=== PATIENT | male | born 1960 | race Caucasian/White ===

== ENCOUNTER → 2017-02-06 | Day surgery (SDC) | payer BC ==
[~2017-02-06] MED LIST: ADVIL200 M3 PO; AMLODIPINE-BEN1 EAC3 PO; FLEXERIL PO; HYDROCODON-ACE1 EAC9 PO; KETOPROFEN PO; LOTREL 10/20 MG1 CAP PO; PRINIVIL10 MG PO; SYNTHROID25 MCG PO
--- NOTE | ~2017-02-06 | OR ---
Unit #: [id number] #: [id number] Patient: DIAMANTE GOULD [id number] [address] [place], [place] [address] [id number] O MR#: [id number] NAME: DIAMANTE GOULD. ROOM: Date of Procedure: 02/06/2017 Admission Date: 02/06/2017 Surgeon: Gabino Awad M.D. : 1960 Attending Physician: Gabino Awad M.D. Primary Care Physician: Ellen Viveros M.D. OPERATIVE REPORT PRIMARY CARE PHYSICIAN Ellen Viveors M.D. PREOPERATIVE DIAGNOSIS Colorectal cancer screening in an average-risk patient. PROCEDURE PERFORMED Colonoscopy up to cecum and terminal ileum with excellent preparation and good visualization. POSTOPERATIVE DIAGNOSES The patient had mild sigmoid and descending colon diverticulosis. Otherwise, normal examination up to cecum and terminal ileum. No polyps were seen. The quality of the prep was excellent. RECOMMENDATIONS Repeat colonoscopy in 10 years. SEDATION USED MAC. DESCRIPTION OF PROCEDURE Following detailed explanation of the potential risks and complications of a colonoscopy, namely perforation, bleeding, and complications related to sedation, the patient was brought to GI lab and laid in the left lateral decubitus position. A digital rectal examination was performed, which was normal. Lubricated tip of the Olympus video colonoscope was inserted through the anus and advanced under direct vision. The scope was advanced and passed up to sigmoid into descending colon. Multiple medium-sized diverticula were seen in this area. The scope tip was then navigated all the way up to cecum with visualization of the ileocecal valve and the appendiceal orifice. Preparation was excellent with good visualization and photodocumentation was obtained. Last few inches of the terminal ileum also visualized after intubation of the ileocecal valve and appeared normal. Successive segments of the colonic mucosa were examined upon withdrawal and appeared unremarkable. There being no polyps, mass lesions, or AVMs. Other than the scant diverticula seen earlier, no other abnormalities were found. The patient did not have any hemorrhoids at anal verge. The scope was then withdrawn. The patient returned to the recovery area. He tolerated the procedure without any postprocedure complications. Unit #: [id number] #: [id number] Patient: DIAMANTE GOULD Dictated by... GabinoDb Tomlin TD: 02/06/2017 22:42 JOB #: [id number] OPERATIVE REPORT Page 1 of 1 X Gabino Awad MD X PROCEDURE OPERATIVE NOTE
== END | disposition home or self-care (01) ==
LOC: COPS 07:18
PROVIDERS: Internal Medicine Gastroenterology
PROC: 0DJD8ZZ Inspection of Lower Intestinal Tract, Via Natural or Artificial Opening Endoscopic (ICD-10-PCS; principal; 2017-02-06 09:00)
DX: Z12.11 Encounter for screening for malignant neoplasm of colon (principal); K57.30 Diverticulosis of large intestine without perforation or abscess without bleeding; E03.9 Hypothyroidism, unspecified; G47.30 Sleep apnea, unspecified; Z79.899 Other long term (current) drug therapy; Z96.651 Presence of right artificial knee joint; Z98.84 Bariatric surgery status; Z98.890 Other specified postprocedural states
CPT/HCPCS: J2250